=== PATIENT | male | born 1960 | race Caucasian/White ===

== ENCOUNTER 2020-10-11 19:11 | Emergency (ER) | payer OTHER ==
[~2020-10-11] VITALS: Ht 175.3 cm; Wt 78.9 kg
[2020-10-11 19:19] VITALS: Ht 175.3 cm; Wt 78.9 kg
[2020-10-11 21:40] VITALS: BP 117/77
== END 2020-10-11 21:40 | disposition home or self-care (01) ==
LOC: ED 19:11
DX: S92.352A Displaced fracture of fifth metatarsal bone, left foot, initial encounter for closed fracture (principal); X58.XXXA Exposure to other specified factors, initial encounter; Y93.89 Activity, other specified; Y92.89 Other specified places as the place of occurrence of the external cause; Y99.8 Other external cause status